=== PATIENT | male | born 1990 | race Caucasian/White ===

== ENCOUNTER 2018-02-18 11:54 | Emergency (ER) | payer BC ==
[~2018-02-18] VITALS: Ht 182.9 cm; Wt 74.8 kg
[2018-02-18 11:59] VITALS: Ht 182.9 cm; Wt 74.8 kg
[2018-02-18 13:33] VITALS: BP 128/80
== END 2018-02-18 13:40 | disposition home or self-care (01) ==
LOC: ED 11:54
DX: S82.61XA Displaced fracture of lateral malleolus of right fibula, initial encounter for closed fracture (principal); X50.1XXA Overexertion from prolonged static or awkward postures, initial encounter; Y93.67 Activity, basketball; Y92.310 Basketball court as the place of occurrence of the external cause; Y99.8 Other external cause status
CPT/HCPCS: J2270; Q0092; Q0162